=== PATIENT | male | born 1960 | race Caucasian/White ===

== ENCOUNTER 2017-04-09 12:20 | Emergency (ER) | payer BC ==
[~2017-04-09] VITALS: Ht 172.7 cm; Wt 104.3 kg
[2017-04-09 12:58] VITALS: BP 138/63
[2017-04-09] MEDS ORDERED: TOBR5DRO6 EACHEYE (13:28)
--- NOTE | 2017-04-09 13:28 | PHYS DOC ---
Past Medical History Past Medical History: No Pertinent History Past Surgical History: No Surgical History Alcohol Use: None Drug Use: None Adult General Chief Complaint Chief Complaint: EYE PROBLEMS HPI HPI Patient is a 56 year old male who presents with bilateral eye redness that began yesterday. Patient iss also complaining of greenish drainage. He is also complaining of light sensitivity. Denies any trauma. Review of Systems Review of Systems Constitutional: Denies fever or chills [] Eyes: bilateral eye redness Musculoskeletal: Denies back pain or joint pain [] Integument: Denies rash or skin lesions [] Neurologic: Denies headache, focal weakness or sensory changes [] Endocrine: Denies polyuria or polydipsia [] Allergies Allergies Allergies Coded Allergies Type Severity Reaction Last Updated Verified No Known Drug Allergies 04/09/17 No Physical Exam Physical Exam Constitutional: Well developed, well nourished, no acute distress, non-toxic appearance. [] HENT: Normocephalic, atraumatic, bilateral external ears normal, oropharynx moist, no oral exudates, nose normal. [] Eyes: PERRLA, EOMI, bilateral conjunctiva appears moderately injected right worse than left. No drainage noted on exam. Skin: Warm, dry, no erythema, no rash. [] Back: No tenderness, no CVA tenderness. [] Extremities: No tenderness, no cyanosis, no clubbing, ROM intact, no edema. [] Neurologic: Alert and oriented X 3, normal motor function, normal sensory function, no focal deficits noted. [] Psychologic: Affect normal, judgement normal, mood normal. [] Current Patient Data Vital Signs Vital Signs Date Time Temp Pulse Resp B/P (MAP) Pulse Ox O2 Delivery O2 Flow Rate FiO2 04/09/17 12:58 98.7 81 18 97 Room Air 98.7 EKG EKG [] Radiology/Procedures Radiology/Procedures [] Course & Med Decision Making Course & Med Decision Making Pertinent Labs and Imaging studies reviewed. (See chart for details) Patient has acute bilateral conjunctivitis. Discharged with tobramycin. Importance of good hand hygiene emphasis. Follow-up with PCP in 1-2 weeks. Dragon Disclaimer Dragon Disclaimer This electronic medical record was generated, in whole or in part, using a voice recognition dictation system. Departure Departure Impression: Primary Impression: Acute bacterial conjunctivitis of both eyes Disposition: 01 HOME, SELF-CARE Condition: STABLE Referrals: NO PCP (PCP) Deya BARAJAS MD Follow-up with the provided insurance follow up representative or your own doctor in 5-7 days if symptoms don't improve Patient Instructions: Bacterial Conjunctivitis, [id number] Additional Instructions: You were seen for acute bilateral conjunctivitis. Keep your hands very clean. Do not wear contact lenses until the infection has cleared out. Use the medication provided as ordered. Follow-up with your doctor or the provided insurance follow up representative in 5-7 days if symptoms don't improve. Return to the ED symptoms worsen. Scripts Tobramycin (TOBRAMYCIN) 5 Ml Drops 1 DROP EACHEYE Q4HRS W/A, #5 ML Prov: JORDYN SHANNON APRN 04/09/17 JORDYN SHANNON APRN Apr 09, 2017 13:28
== END 2017-04-09 13:31 | disposition home or self-care (01) ==
LOC: ER 12:20
DX: H10.33 Unspecified acute conjunctivitis, bilateral (principal)
CPT/HCPCS: 99283